=== PATIENT | female | born 1960 | race Caucasian/White ===

== ENCOUNTER 2022-08-27 09:44 | Emergency (ER) | payer BC ==
[~2022-08-27] VITALS: Ht 167.6 cm; Wt 104.3 kg
[2022-08-27] MEDS ORDERED: WELLBUTRIN SR150 MG PO (10:03)
== END 2022-08-27 13:30 | disposition home or self-care (01) ==
LOC: ER 09:44
DX: U07.1 COVID-19 (principal); R55 Syncope and collapse